=== PATIENT | female | born 1955 | race African-American/Black ===

== ENCOUNTER 2018-10-08 15:12 | Emergency (ER) | payer OTHER, MEDICAID ==
[~2018-10-08] VITALS: Ht 157.5 cm; Wt 109.9 kg
[~2018-10-08 15:12] MED LIST: ATOR20TA PO; METF500T PO; METO25TA PO; OMEP-113 PO
[2018-10-08 15:14] VITALS: BP 153/81
--- NOTE | 2018-10-08 15:22 | NUR ---
WAIT IN LOBBY
--- NOTE | 2018-10-08 16:08 | NUR ---
PT AMBULATED TO BED 2 AT THIS TIME
--- NOTE | 2018-10-08 16:16 | NUR ---
PT BIB SELF C/O BLISTER, REDNESS, PAIN RIGHT LOWER LEG X1 DAY. PT REPORTS SHE HAS BEEN GETTING THESE ON DIFFERENT LOCATIONS OF HER BODY X2 MONTHS. PT DRAINED BLISTER TODAY, DRAINED WITH CLEAR THIN LIQUID. ITCHY PIAN AT 11/06. VSS. ER TO SEE PT. MED HX; DM, HTN, HIGH CHOLESTEROL
[2018-10-08 18:22] VITALS: BP 154/83
--- NOTE | 2018-10-08 18:22 | NUR ---
Patient discharged with v/s stable. Written and verbal after care instructions given and explained. Patient alert, oriented and verbalized understanding of instructions. Ambulatory with steady gait. All questions addressed prior to discharge. ID band removed. Patient advised to follow up with PMD. Rx of CLARITIN AND HYDROCORTISONE given. Patient educated on indication of medication including possible reaction and side effects. Opportunity to ask questions provided and answered.
== END 2018-10-08 18:22 | disposition home or self-care (01) ==
LOC: MED 15:12
DX: S90.521A Blister (nonthermal), right ankle, initial encounter (principal); E11.9 Type 2 diabetes mellitus without complications; K21.9 Gastro-esophageal reflux disease without esophagitis; I10 Essential (primary) hypertension; Z88.6 Allergy status to analgesic agent; Z79.899 Other long term (current) drug therapy; Z79.84 Long term (current) use of oral hypoglycemic drugs; X58.XXXA Exposure to other specified factors, initial encounter; Y93.89 Activity, other specified; Y92.89 Other specified places as the place of occurrence of the external cause; Y99.8 Other external cause status
CPT/HCPCS: 99282

== ENCOUNTER 2019-04-23 15:46 | Inpatient (IN) | payer OTHER, MEDICAID ==
[~2019-04-23] VITALS: Ht 157.5 cm; Wt 103.4 kg
[2019-04-23 16:20] VITALS: BP 142/103
--- NOTE | 2019-04-23 16:52 | NUR ---
BIB SELF C/O DIZZINESS, WEAKNESS, LIGHT HEADACHE ,LLQ AND EPIGASTRIC ABDOMINAL BURNING PAIN, NAUSEA WITHOUT VOMITING, & MID CHEST TIGHTNESS & BURNING X 2 HOURS AGO. STATES SOB EARLIER. FELT LIKE ROOM WAS SPINNING EARLIER EVEN WITH EYES CLOSED. BLOOD SUGAR 107 AT THIS TIME. BP 142/103, RECHECKED 134/71, RR 20, SPO2 100% RA, HR 87. PT PLACED ON BEDSIDE MONITOR. BEDRAILS UP X1. AOX4. MED HX: PRE DM, HTN, HIGH CHOLESTEROL,HYSTERECTOMY
[2019-04-23] MEDS ORDERED: NACL 0.9% 1,000 ML IV ONE (17:18)
[2019-04-23] MEDS ORDERED: MECLIZINE 25 MG TAB PO ONE (17:20)
[2019-04-23] MEDS ORDERED: LORazepam 1 MG TAB PO ONE (17:20)
[2019-04-23 18:08] LABS: APPEARANCE,URINE CLEAR (CLEAR); BILIRUBIN,URINE NEGATIVE (NEGATIVE); BLOOD, URINE NEGATIVE (NEGATIVE); COLOR,URINE YELLOW (YELLOW); LEUKOCYTE ESTERASE ,URINE NEGATIVE (NEGATIVE); NITRITE, URINE NEGATIVE (NEGATIVE); UGLUCOSE NEGATIVE (NEGATIVE)
[2019-04-23 18:11] LABS: BARBITURATE, URINE NEG. ng/ml (NEG <=200); BENZODIAZEPINE, URINE NEG. ng/mL (NEG <=200); CANNABINOID, URINE NEG. ng/mL (NEG <=50); COCAINE, URINE NEG. ng/mL (NEG <=300); OPIATE, URINE NEG. ng/mL (NEG <=2000); PHENCYCLIDINE SCREEN,URINE NEG. ng/mL (NEG <=25)
[2019-04-23 18:18] LABS: PROTHROMBIN TIME 10.2 secs (10.8-13.4)
[2019-04-23] MEDS ORDERED: ZOLPIDEM 5 MG TAB PO PRN (18:25)
[2019-04-23] MEDS ORDERED: LORazepam 2 MG/ML VIAL IM/IVP PRN (18:25)
[2019-04-23] MEDS ORDERED: ACETAMINOPHEN 325 MG TAB PO PRN (18:25)
[2019-04-23] MEDS ORDERED: MORPHINE SULFATE 2 MG/ML SYR IVP PRN (18:25)
[2019-04-23] MEDS ORDERED: DOCUSATE SODIUM 100 MG GELCAP PO PRN (18:25)
[2019-04-23] MEDS ORDERED: HYDROcodone/APAP 5/325 MG 1 TAB TAB PO PRN (18:25)
[2019-04-23] MEDS ORDERED: ONDANSETRON 4 MG/2 ML VIAL IM/IVP PRN (18:25)
[2019-04-23 18:26] LABS: ANION GAP 18.7 (8-16); CARBON DIOXIDE 23.7 mmol/L (21-32); POTASSIUM 3.4 mmol/L (3.5-5.1)
[2019-04-23 18:27] LABS: ALBUMIN 4.2 g/dL (3.4-5.0); CREATININE 1.2 mg/dL (0.6-1.3); TOTAL BILIRUBIN 0.6 mg/dL (0.0-1.0)
[2019-04-23] MEDS ORDERED: INSULIN LISPRO SLIDING SCALE 100 UNITS/ML VIAL SUBQ PRN (18:30)
[2019-04-23] MEDS ORDERED: DEXTROSE 50% 50 ML SYR IVP PRN (18:30)
[2019-04-23 18:35] LABS: C-REACTIVE PROTEIN QUANT < 0.2 mg/dL (0.0-0.9)
--- NOTE | 2019-04-23 18:44 | NUR ---
PT TO CT HEAD VIA W/C
[2019-04-23] MEDS ORDERED: MECLIZINE 25 MG TAB PO PRN (18:45)
[2019-04-23] MEDS ORDERED: NITROGLYCERIN 0.4 MG TAB SL PRN (18:45)
[2019-04-23 18:47] LABS: BASOPHILS % (AUTO) 0.4 % (0.0-2.0); EOSINOPHILS % (AUTO) 0.1 % (0.0-4.0); HEMATOCRIT 42.4 % (36-48); HEMOGLOBIN 13.7 g/dL (12.0-16.0); LYMPHOCYTES % (AUTO) 25.3 % (20.5-51.1); MEAN CORPUSCULAR HEMOGLOBIN 29 pg (27-31); MEAN CORPUSCULAR HGB CONC 32 g/dL (33-37); MEAN CORPUSCULAR VOLUME 88.4 fL (80-94); MONOCYTES # (AUTO) 0.7 K/uL (0.8-1.0); MONOCYTES % (AUTO) 9.7 % (1.7-9.3); NEUTROPHILS % (AUTO) 64.5 % (42.2-75.2); PLATELET COUNT (AUTO) 280 K/uL (140-450); RED CELL DISTRIBUTION WIDTH 15.2 % (11.6-13.7); WHITE BLOOD COUNT (AUTO) 7.7 K/uL (4.8-10.8)
[2019-04-23 19:01] LABS: MAGNESIUM 1.5 mg/dL (1.8-2.4); URIC ACID 6.9 mg/dL (2.6-7.2)
[2019-04-23 19:09] LABS: CHOL/HDL RATIO 3.2 (1-4.5); MAGNESIUM 1.5 mg/dL (1.8-2.4); PHOSPHORUS 2.2 mg/dL (2.5-4.9); THYROID STIMULATING HORMONE 2.69 uIU/mL (0.34-3.74)
[2019-04-23] MEDS ORDERED: SODIUM PHOS / POTASSIUM PHOS 1 PKT PDR PO ONE (19:50)
[2019-04-23] MEDS ORDERED: MAG SULF 2000 MG/WATER PREMIX 50 ML IV ONE (19:50)
[2019-04-23] MEDS ORDERED: KCL 20 MEQ/WATER INJ PREMIX 100 ML IV ONE (19:50)
--- NOTE | 2019-04-23 20:05 | NUR ---
RECEIVED FROM ER PER JARROD. ABLE TO WALK FROM DOOR OF ROOM TO BED B . INDEPENDENT. STANDBY ASSIST IN PLACE. ROM X 4. CLEAR SPEECH. CALL LIGHT WITH IN REACH . CARE PLANS FOR THE NIGHT DISCUSSED WITH HER AND CALL LIGHT USE EXPLAINED. ENCOURAGED TO CALL FOR ANY HELP SHE MAY NEED. DX. OF NEAR SYNCOPE AND GENERALIZED WEAKNESS. BED ALARM ON. TELEMETRY MONITORING. SKIN INTACT. OBESE FEMALE.
[2019-04-23] MEDS ORDERED: ALBUTEROL SULFATE/IPRATROPIU 3 ML SOL IH PRN (20:10)
--- NOTE | 2019-04-23 20:16 | NUR ---
Patient will be admitted to care of [facility]. Admited to TELEMETRY. Will go to room. Belongings list completed. Report to ORTIZ CAMPBELL.
[2019-04-23 20:36] VITALS: BP_SYST 119; BP_SYST 136; BP_DIAS 53; BP_DIAS 72
[2019-04-23] MEDS: BLOOD GLUCOSE MONITORING 1 DEV DEV FS SCH (21:00)
[2019-04-23] MEDS ORDERED: SODIUM PHOS / POTASSIUM PHOS 1 PKT PDR ONE (21:51)
[2019-04-23] MEDS: NACL 0.9% 1,000 ML IV SCH (21:53)
--- NOTE | 2019-04-23 22:00 | NUR ---
FLU SPECIMEN SENT TO LAB. MRSA SPECIMEN COLLECTED AND SENT TO LAB. ABLE TO VERBALIZE SIMPLE NEEDS WELL. TELEMETRY MONITORING. CALL LIGHT WITH IN REACH.
[2019-04-24] VITALS: BP 140/72
--- NOTE | 2019-04-24 00:49 | NUR ---
SLEEPING AT THIS TIME. CALL LIGHT WITH IN REACH.
[2019-04-24] MEDS ORDERED: POTASSIUM CHLORIDE 10 MEQ TABER PO SCH (01:00)
--- NOTE | 2019-04-24 01:28 | NUR ---
KADEN NOT FULLY ADMINISTERED . ABLE TO INFUSE ONLY 30 ML RT PT. STATES IT HURTS HER SO MUCH. INFORMED RESIDENT MD THAT I ALREADY LOWERED THE RATE TO 20 ML/H BUT IT STILL HURTS HER. RESIDENT MD ORDERED TO STOP AND INSTEAD TO GIVE TABLET FORM . MAGNESIUM SULFATE 2 GMS IV TO FOLLOW . PT. AWARE.
[2019-04-24] MEDS ORDERED: MAG SULF 2000 MG/WATER PREMIX 50 ML IV SCH (02:00)
--- NOTE | 2019-04-24 03:00 | NUR ---
NO ADVERSE REACTIONS NOTED FROM MAGNESIUM RIDER ADMINISTERED. IVF SITE INTACT AND NO INFILTRATION. NS AT 60 ML INFUSING.
[2019-04-24 04:00] VITALS: BP 131/74
[2019-04-24] MEDS ORDERED: ALBUTEROL SULFATE/IPRATROPIU 3 ML SOL IH SCH (06:00)
[2019-04-24] MEDS: BLOOD GLUCOSE MONITORING 1 DEV DEV FS SCH ×4 (06:20→21:03)
--- NOTE | 2019-04-24 06:21 | NUR ---
PT. SLEPT WELL THIS SHIFT. AWAKE AT THIS TIME. ASSISTED TO RESTROOM TO URINATE. NOTED ABLE TO WALK BY HERSELF. CALL LIGHT WITH IN REACH AND BED ALARM ON. ENCOURAGED TO USE CALL LIGHT FOR ANY HELP SHE MAY NEED. NO PAIN COMPLAINTS DONE. TELEMETRY MONITORING. IVF SITE INTACT AND NO S/S OF INFILTRATION. WILL ENDORSE TO AM RN FOR CONTINUITY OF CARE. A/O X 4. ROM X 4. CLEAR SPEECH. AFEBRILE.
--- NOTE | 2019-04-24 07:05 | NUR ---
RECEIVED BEDSIDE REPORT FROM TECHNOLOGY SUPPORT ANALYST NURSE. PT WAS RESTING IN BED. PT IS AAOX4. SKIN IS INTACT, IV IS CLEAN, INTACT. BREATHING IS EVEN AND UNLABORED, PT IS ON RA. NO SIGNS OF DISTRESS NOTED AT THIS TIME. DENIES PAIN. TELE MONITOR ATTACHED. SAFETY MEASURES ASSESSED, BED IN LOW POSITION AND CALL LIGHT WITHIN REACH. EDUCATED PT TO USE CALL LIGHT FOR ANY ASSISTANCE. PT VERBALIZED UNDERSTANDING.
[2019-04-24 08:00] VITALS: BP 125/68
[2019-04-24] MEDS: ATORVASTATIN 20 MG TAB PO SCH (08:48)
[2019-04-24] MEDS: LISINOPRIL 5 MG TAB PO SCH (08:48)
[2019-04-24] MEDS: METOPROLOL 25 MG TAB PO SCH (08:48)
[2019-04-24] MEDS: ASPIRIN 81 MG TAB.CHEW PO SCH (08:49)
--- NOTE | 2019-04-24 08:55 | NUR ---
HELPED PT TO RESTROOM. PT DENIES N/V AND DIZZINESS.
[2019-04-24] MEDS ORDERED: PANTOPRAZOLE 40 MG TABEC PO ONE (09:00)
[2019-04-24] MEDS ORDERED: metFORMIN 500 MG TAB PO SCH (09:00)
--- NOTE | 2019-04-24 09:01 | NUR ---
PATIENT HAS BEEN SCREENED AND CATEGORIZED MODERATE NUTRITION RISK. PATIENT WILL BE SEEN WITHIN 3-5 DAYS OF ADMISSION. 04/26/19-04/28/[address]
[2019-04-24 09:15] LABS: BASOPHILS % (AUTO) 0.8 % (0.0-2.0); EOSINOPHILS # (AUTO) 0.1 K/uL (0-0.4); EOSINOPHILS % (AUTO) 1.3 % (0.0-4.0); HEMATOCRIT 40.5 % (36-48); HEMOGLOBIN 13.1 g/dL (12.0-16.0); LYMPHOCYTES # (AUTO) 1.2 K/uL (2.5-16.5); LYMPHOCYTES % (AUTO) 20.4 % (20.5-51.1); MEAN CORPUSCULAR HEMOGLOBIN 29 pg (27-31); MEAN CORPUSCULAR HGB CONC 32 g/dL (33-37); MEAN CORPUSCULAR VOLUME 88.2 fL (80-94); MONOCYTES # (AUTO) 0.6 K/uL (0.8-1.0); MONOCYTES % (AUTO) 9.8 % (1.7-9.3); NEUTROPHILS # (AUTO) 3.9 K/uL (1.8-7.7); NEUTROPHILS % (AUTO) 67.7 % (42.2-75.2); PLATELET COUNT (AUTO) 240 K/uL (140-450); RED BLOOD CELL COUNT(AUTO) 4.59 MIL/uL (4.20-5.40); RED CELL DISTRIBUTION WIDTH 14.9 % (11.6-13.7); WHITE BLOOD COUNT (AUTO) 5.8 K/uL (4.8-10.8)
[2019-04-24 09:17] LABS: ANION GAP 18.3 (8-16); CARBON DIOXIDE 24.6 mmol/L (21-32); CREATININE 1.1 mg/dL (0.6-1.3); POTASSIUM 3.9 mmol/L (3.5-5.1)
[2019-04-24 09:30] LABS: PHOSPHORUS 4.1 mg/dL (2.5-4.9)
[2019-04-24 09:39] LABS: MAGNESIUM 2.1 mg/dL (1.8-2.4)
--- NOTE | 2019-04-24 11:40 | NUR ---
TOLERATED INCENTIVE SPIROMETRY THERAPY WELL WITHOUT ADVERSE REACTIONS NOTED ENCOURAGED PATIENT WITH ACKNOWLEDGEMENT TO USE INCENTIVE SPIRIMETRY EVERY 1-2 HOURS WHILE AWAKE
[2019-04-24 12:00] VITALS: BP 116/63
--- NOTE | 2019-04-24 12:20 | NUR ---
TOOK PT TO SHOWER, IV SL AND COVERED. PT HAD SHOWER INDEPENDENTLY. PT SAFELY RETURNED TO BED.
--- NOTE | 2019-04-24 13:10 | NUR ---
PT'S IV LEAKING, DC'D. TIP INTACT. MONI CAMPBELL STARTED NEW IV ON RIGHT FA 22G.
--- NOTE | 2019-04-24 13:58 | NUR ---
DC PLANNIN63 Y/O FEMALE PATIENT FROM HOME, WHO CAME IN DUE TO DIZZINESS. PAST MEDICAL AND SURGICAL HISTORY INCLUDE HTN, GERD, DM2, HYPERLIPIDEMIA AND HYSTERECTOMY. INITIAL DIAGNOSIS OF WEAKNESS AND NEAR SYNCOPE. CURRENT LABS INCLUDE WBC 5.8, H/H 13.1/40.[address] ON ADMISSION SHOWED MILD GLOBAL VOLUME LOSS. CXR NORMAL. US OF BLE NO DVT. CAROTID U/S NORMAL. CHEST CT SHOWED CORONARY ARTERY CALCIFICATIONS, MINIMAL DEPENDENT ATELECTASIS/SCARRING AND MILD WALL THICKENING AND FLUID IN THE DISTAL ESOPHAGUS WHICH MAY INDICATE REFLUX AND/OR ESOPHAGITIS. CURRENT MEDS INCLUDE ANTIVERT. GI CONSULT WITH DR VELASQUEZ FOR ESOPHAGITIS. CARDIO CONSULT WITH DR. FOREMAN FOR R/O ACS. DC PLAN TO HOME ONCE STABLE.
--- NOTE | 2019-04-24 15:50 | NUR ---
PT WATCHING TV. NO S/S DISTRESS. PT SELECTED MEALS FOR TOMORROW, SENT TO [facility].
[2019-04-24 16:00] VITALS: BP 134/68
--- NOTE | 2019-04-24 17:05 | NUR ---
PT RESTING IN BED, WATCHING TV. NO SIGNS OF DISTRESS. DENIES PAIN AT THIS TIME. WILL CONTINUE TO MONITOR. BED IN LOW POSITION, CALL LIGHT IN REACH.
[2019-04-24] MEDS: NACL 0.9% 1,000 ML IV SCH (17:24)
--- NOTE | 2019-04-24 19:16 | NUR ---
GAVE BEDSIDE REPORT TO ARCHITECTURAL JOB CAPTAIN RN. PT IN STABLE CONDITION.
--- NOTE | 2019-04-24 19:17 | NUR ---
REPORT RECEIVED FROM AM NURSE AT BEDSIDE. PT IN STABLE CONDITION. AAOX4. INTRODUCED SELF TO PT. BOARD UPDATED. NO COMPLAINTS OF PAIN. NO SOB. AFEBRILE. PT IS AMBULATORY BUT IS A FALL RISK. IV SITE R FA 22G RUNNING NS@60ML/HR PATENT AND INTACT. SKIN WARM, DRY, AND INTACT WITH NO OPEN WOUNDS. BED LOCKED IN LOW POSITION. CALL ALVARENGA WITHIN REACH. SAFETY PRECAUTION IN PLACE. ALL NEEDS MET AT THIS TIME.
[2019-04-24 20:00] VITALS: BP 103/62
--- NOTE | 2019-04-24 20:57 | NUR ---
HEPARIN GIVEN SUBQ. BS 178. 2 UNITS OF HUMALOG GIVEN. PT TOLERATED WELL.
[2019-04-24] MEDS ORDERED: PNEUMOCOCCAL VACCINE 23 MCG/0.5 ML VIAL IMVAC PRN (23:05)
--- NOTE | 2019-04-24 23:30 | NUR ---
PT SLEEPING COMFORTABLY BUT AROUSABLE. NO S/S OF DISTRESS NOTED. WILL CONTINUE TO MONITOR.
[2019-04-25] VITALS: BP 107/67
--- NOTE | 2019-04-25 01:25 | NUR ---
PT SLEEPING COMFORTABLY BUT AROUSABLE. NO S/S OF DISTRESS NOTED. NO COMPLAINTS OF PAIN. NO SOB. AFEBRILE. WILL CONTINUE TO MONITOR.
[2019-04-25] MEDS: NACL 0.9% 1,000 ML IV SCH (01:45)
--- NOTE | 2019-04-25 03:35 | NUR ---
PT SLEEPING COMFORTABLY BUT AROUSABLE. NO S/S OF DISTRESS NOTED. VS STABLE. TELE MONITORING. WILL CONTINUE TO MONITOR.
[2019-04-25 04:00] VITALS: BP 118/73
--- NOTE | 2019-04-25 05:00 | NUR ---
PT SLEEPING COMFORTABLY BUT AROUSABLE. NO S/S OF DISTRESS NOTED. RESPIRATIONS EVEN, UNLABORED, AND WNL. WILL CONTINUE TO MONITOR.
[2019-04-25] MEDS: BLOOD GLUCOSE MONITORING 1 DEV DEV FS SCH (05:12)
--- NOTE | 2019-04-25 05:12 | NUR ---
BS 110. NO INSULIN COVERAGE NEEDED.
[2019-04-25 06:20] LABS: BASOPHILS % (AUTO) 0.7 % (0.0-2.0); EOSINOPHILS # (AUTO) 0.1 K/uL (0-0.4); EOSINOPHILS % (AUTO) 1.2 % (0.0-4.0); HEMATOCRIT 36.9 % (36-48); HEMOGLOBIN 11.9 g/dL (12.0-16.0); LYMPHOCYTES # (AUTO) 1.5 K/uL (2.5-16.5); MEAN CORPUSCULAR HEMOGLOBIN 28 pg (27-31); MEAN CORPUSCULAR HGB CONC 32 g/dL (33-37); MEAN CORPUSCULAR VOLUME 87.5 fL (80-94); MONOCYTES # (AUTO) 0.6 K/uL (0.8-1.0); MONOCYTES % (AUTO) 10.7 % (1.7-9.3); NEUTROPHILS % (AUTO) 58.4 % (42.2-75.2); PLATELET COUNT (AUTO) 221 K/uL (140-450); RED BLOOD CELL COUNT(AUTO) 4.22 MIL/uL (4.20-5.40); RED CELL DISTRIBUTION WIDTH 14.9 % (11.6-13.7); WHITE BLOOD COUNT (AUTO) 5.2 K/uL (4.8-10.8)
[2019-04-25 06:28] LABS: ANION GAP 12.8 (8-16); CARBON DIOXIDE 26.3 mmol/L (21-32); CREATININE 1.1 mg/dL (0.6-1.3); POTASSIUM 4.1 mmol/L (3.5-5.1)
[2019-04-25 06:35] LABS: MAGNESIUM 1.7 mg/dL (1.8-2.4); PHOSPHORUS 4.3 mg/dL (2.5-4.9)
--- NOTE | 2019-04-25 06:50 | NUR ---
PT SLEEPING COMFORTABLY BUT AROUSABLE. PT IN STABLE CONDITION.
--- NOTE | 2019-04-25 07:15 | NUR ---
RECEIVED BEDSIDE REPORT FROM NIGHT NURSE. PATIENT IS ASLEEP BUT EASILY AROUSABLE. RESPIRATIONS EVEN AND UNLABORED. IV INTACT AND PATENT TO RIGHT FOREARM WITH IVF NS INFUSING @60ML/HR. WILL CONTINUE TO MONITOR PATIENT. BED IN LOW POSITION. SAFETY MEASURES IN PLACE. CALL LIGHT WITHIN REACH.
[2019-04-25] MEDS ORDERED: MAGNESIUM OXIDE 400 MG TAB PO SCH (07:50)
[2019-04-25 08:00] VITALS: BP 107/63
[2019-04-25] MEDS ORDERED: PANT40EC28 PO (08:00)
[2019-04-25] MEDS ORDERED: ASPI81CT95 PO (08:00)
[2019-04-25] MEDS: LISINOPRIL 5 MG TAB PO SCH (08:46)
[2019-04-25] MEDS: METOPROLOL 25 MG TAB PO SCH (08:46)
[2019-04-25] MEDS: ASPIRIN 81 MG TAB.CHEW PO SCH (08:46)
[2019-04-25] MEDS: ATORVASTATIN 20 MG TAB PO SCH (08:48)
[2019-04-25] MEDS ORDERED: PANTOPRAZOLE 40 MG TABEC PO SCH (09:00)
--- NOTE | 2019-04-25 09:06 | NUR ---
PATIENT AWAKE, ALERT AND VERBALLY RESPONSIVE. PATIENT WITH HOB ELEVATED, READING A BOOK. NO S/S OF DISTRESS NOTED. BED IN LOW POSITION. SAFETY MEASURES IN PLACE. CALL LIGHT WITHIN REACH. PT IS FOR DISCHARGE TODAY.
[2019-04-25] MEDS ORDERED: PNEUMOCOCCAL VACCINE 23 MCG/0.5 ML VIAL IMVAC SCH (09:45)
--- NOTE | 2019-04-25 10:06 | NUR ---
PNEUMO VACCINE GIVEN TO LEFT DELTOID ORDERED TO BE GIVEN BEFORE DISCHARGE.
--- NOTE | 2019-04-25 11:01 | NUR ---
DISCHARGE TEACHINGS PROVIDED. PATIENT IN STABLE CONDITION. ALL DISCHARGE INSTRUCTIONS PAPERWORK AND ALL BELONGINGS LIST SIGNED. PRESCRIPTION GIVEN TO PATIENT. PATIENT IS WAITING FOR HER SISTER TO PICK HER UP TO GO HOME.
--- NOTE | 2019-04-25 11:50 | NUR ---
PATIENT PICKED UP BY HER SISTER AND BROTHER VIA PRIVATE VEHICLE TO HOME. PATIENT BROUGHT TO THE [facility] BY WHEELCHAIR AND AMBULATED INTO THE PRIVATE VEHICLE. ALL BELONGINGS AND DISCHARGE PAPERWORK TAKEN WITH PATIENT. PT IN STABLE CONDITION. Addendum: 04/25/19 at 1226 by Diana Vera RN ADDITION TO NOTES: ID BANDS REMOVED AND PERIPHERAL IV REMOVED, CANNULA INTACT. NO BLEEDING NOTED.
== END 2019-04-25 11:50 | disposition home or self-care (01) | DRG 74 ==
LOC: MED 15:46 → MMU 18:22 → MTU 04-24 09:20
PROVIDERS: ADMIT General Practice; ATTEND General Practice
PROC: 3E0234Z Introduction of Serum, Toxoid and Vaccine into Muscle, Percutaneous Approach (ICD-10-PCS; principal; 2019-04-25)
DX: G90.9 Disorder of the autonomic nervous system, unspecified (principal); Z68.41 Body mass index [BMI] 40.0-44.9, adult; K21.0 Gastro-esophageal reflux disease with esophagitis; E87.6 Hypokalemia; E83.42 Hypomagnesemia; E83.39 Other disorders of phosphorus metabolism; E11.9 Type 2 diabetes mellitus without complications; E66.9 Obesity, unspecified; E78.5 Hyperlipidemia, unspecified; I10 Essential (primary) hypertension; E78.00 Pure hypercholesterolemia, unspecified; E83.52 Hypercalcemia; Z90.710 Acquired absence of both cervix and uterus; Z88.8 Allergy status to other drugs, medicaments and biological substances; Z79.84 Long term (current) use of oral hypoglycemic drugs; Z79.899 Other long term (current) drug therapy; Z23 Encounter for immunization
CPT/HCPCS: 36415; 70450; 71045; 71275; 80048; 80053; 80305; 81003; 82948; 83036; 83690; 83735; 83880; 84100; 84134; 84443; 84484; 84550; 85025; 85379; 85610; 85730; 86140; 87081; 87804; 90732; 93005; 93880; 93925; 93970; 94640; 99285; J1644; J3475; J3480; J7030; J7620; J8597; Q0092; Q9967